=== PATIENT | male | born 1970 | race Two or more races ===

== ENCOUNTER 2018-04-04 15:05 | Inpatient (IN) | payer OTHER ==
[2018-04-04 15:40] VITALS: BMI 24.6
--- NOTE | 2018-04-04 17:53 | HP ---
COWS - Scale Resting Pulse: 0= [place] 80 or Below Sweatin= Beads of Sweat on Face Restless Observation: 1= Difficult to Sit Still Pupil Size: 1= Pupils >than Normal Bone or Joint Aches: 1= Mild Discomfort Runny Nose/ Eye Tearin= Nasal Congestion GI Upset > 30mins: 2= Nausea/Diarrhea Tremor Observation: 2= Slight Tremor Visible Yawning Observation: 0= None Anxiety or Irritability: 1=Feels Anxious/Irritable Goose Flesh Skin: 0=Smooth Skin COWS Score: 12 CIWA Score - Admission Criteria OASAS Guidelines: Admission for Medically Managed Detox: Requires at least one of the followin. CIWA greater than 12 2. Seizures within the past 24 hours 3. Delirium tremens within the past 24 hours 4. Hallucinations within the past 24 hours 5. Acute intervention needed for co occurring medical disorder 6. Acute intervention needed for co occurring psychiatric disorder 7. Severe withdrawal that cannot be handled at a lower level of care (continued vomiting, continued diarrhea, abnormal vital signs) requiring intravenous medication and/or fluids 8. Admission ROS [facility] Chief Complaint: here for heroin detox 48 yo with HIV on meds, VL< 20 and CD4 1200- PCP at [facility]. Says was told he had COPD- uses Ventolin prn Heroin use for 5 years- using 5-6 bags/day, sniffing, last detox 6 weeks ago at [facility]- used the same day of discharge Does not use cocaine, occ THC, no other drugs [employer]/DUR- no recent meds, Utox: fentanyl, opiates, methadone used Suboxone in the past- did not like it. Does not want to go to methadone program- but would consider it Allergies/Adverse Reactions: Allergies Allergy/AdvReac Type Severity Reaction Status Date / Time No Known Allergies Allergy Verified 04/04/18 16:37 - Ebola screening Have you traveled outside of the country in the last 21 days: No Have you had contact with anyone from an Ebola affected area: No Have you been sick,other than usual withdrawal symptoms: No Do you have a fever: No - Review of Systems Constitutional: No Symptoms Reported EENT: reports: No Symptoms Reported Respiratory: reports: No Symptoms reported Cardiac: reports: No Symptoms Reported GI: reports: No Symptoms Reported, Abdominal cramping : reports: No Symptoms Reported Musculoskeletal: reports: No Symptoms Reported Integumentary: reports: No Symptoms Reported Neuro: reports: No Symptoms reported Endocrine: reports: No Symptoms Reported Hematology: reports: No Symptoms Reported Psychiatric: reports: No Sypmtoms Reported Other Systems: Reviewed and Negative Patient History - Patient Medical History Hx Asthma: No Hx Chronic Obstructive Pulmonary Disease (COPD): Yes Hx Cardiac Disorders: No Hx Hypertension: No Hx Seizures: No Hx Diabetes: No Hx Gastrointestinal Disorders: No Hx Genitourinary Disorders: No Hx Sexually Transmitted Disorders: No Hx Renal Disease (ESRD): No Hx Human Immunodeficiency Virus (HIV): Yes (on meds, VL < 20) Hx Depression: No Hx Suicide Attempt: No Hx Schizophrenia: No Other Medical History: h/o Tourette's- uses Risperdal 3mg- controls - Patient Surgical History Past Surgical History: Yes Hx Appendectomy: Yes Hx Genitourinary Surgery: Yes (hernia repair R side) Other Surgical History: R inguinal hernia repair. - PPD History Previous Implant?: Yes Documented Results: Negative w/o proof Implanted On Prior R Admission?: No - Smoking Cessation Smoking history: Current every day smoker Have you smoked in the past 12 months: Yes Aproximately how many cigarettes per day: 20 Hx Chewing Tobacco Use: No Initiated information on smoking cessation: Yes 'Breaking Loose' booklet given: 04/04/18 - Substance & Tx. History Hx Substance Use: Yes Substance Use Type: Heroin Hx Substance Use Treatment: Yes (at [facility] 6 weeks ago) - Substances Abused Heroin Route: Inhalation Frequency: Daily Amount used: 4-5 BAGS Age of first use: 42 Date of Last Use: 04/04/18 Family Disease History - Family Disease History Family History: Denies Admission Physical Exam [facility] - Vital Signs Vital Signs: Vital Signs - 24 hr 04/04/18 15:36 Temperature 96.8 F L Pulse Rate 69 Respiratory 18 Rate Blood Pressure 126/86 - Physical General Appearance: Yes: Within Normal Limits HEENTM: Yes: Within Normal Limits, EOMI, Hearing grossly Normal, Normal ENT Inspection Respiratory: Yes: Within Normal Limits, Wheezing Neck: Yes: Within Normal Limits Cardiology: Yes: Within Normal Limits, S1, S2 Abdominal: Yes: Within Normal Limits Genitourinary: Yes: Within Normal Limits Back: Yes: Within Normal Limits Musculoskeletal: Yes: Within Normal Limits Extremities: Yes: Within Normal Limits Neurological: Yes: Within Normal Limits, heel trimmer II-XII NML intact, Motor Strength 5 /5 Integumentary: Yes: Within Normal Limits Lymphatic: Yes: Within Normal Limits - Diagnostic (1) Opioid use disorder Current Visit: Yes Status: Acute (2) COPD (chronic obstructive pulmonary disease) Current Visit: Yes Status: Acute (3) HIV (human immunodeficiency virus infection) Current Visit: Yes Status: Acute (4) Nicotine use disorder Current Visit: Yes Status: Acute [facility] Breath Alcohol Content Breath Alcohol Content: 0 Urine Drug Screen - Results Drug Screen Negative: No Urine Drug Screen Results: OPI-Opiates, MTD-Methadone, FEN-Fentanyl
[2018-04-04] MEDS ORDERED: METHADONE HCL 10 MG TABLET (FOR DETOX USE ONLY) PO ONE ×2 (18:00→23:00)
[2018-04-04] MEDS ORDERED: diazePAM 5 MG TABLET PO PRN (18:00)
[2018-04-04] MEDS ORDERED: hydrOXYzine PAMOATE 50 MG CAPSULE (FP) PO PRN (18:01)
[2018-04-04] MEDS ORDERED: IBUPROFEN 400 MG TABLET (FP) PO PRN (18:01)
[2018-04-04] MEDS ORDERED: MAGNESIUM CITRATE 300 ML BOTTLE PO PRN (18:01)
[2018-04-04] MEDS ORDERED: ACETAMINOPHEN 325 MG TABLET (FP) PO PRN (18:01)
[2018-04-04] MEDS ORDERED: MENTHOL/PHENOL 1 EACH UD MM PRN (18:01)
[2018-04-04] MEDS ORDERED: P-EPHED 60MG/TRIPROLIDI 2.5MG TABLET PO PRN (18:01)
[2018-04-04] MEDS ORDERED: MAG HYDROX/AL HYDROX/SIMETH 30 ML UNIT-DOSE CUP PO PRN (18:01)
[2018-04-04] MEDS ORDERED: MAGNESIUM HYDROX 2400MG/30ML ORAL SUSPENSION 30 ML CUP PO PRN (18:01)
[2018-04-04] MEDS ORDERED: LOPERAMIDE HCL 2 MG CAPSULE PO PRN (18:01)
[2018-04-04] MEDS ORDERED: guaiFENesin/D-METHORPHAN HB 10 ML UNIT-DOSE CUPS PO PRN (18:01)
[2018-04-04] MEDS ORDERED: ALBUTEROL SO4 8 GM HFA INHALER IH PRN (18:02)
[2018-04-04] MEDS: RISPERIDONE 3 MG PO SCH (22:00)
[2018-04-04] MEDS ORDERED: MELATONIN 5 MG TABLETS PO PRN (22:00)
[2018-04-04] MEDS: THIAMINE HCL 100 MG TABLET (FP) PO SCH (22:49)
[2018-04-05] MEDS ORDERED: METHADONE HCL 10 MG TABLET (FOR DETOX USE ONLY) PO ONE (10:00)
[2018-04-05] MEDS: PRENATAL VITAMINS W/ FOLIC ACID TABLET (FP) PO SCH (10:23)
[2018-04-05] MEDS: NICOTINE 21 MG/24 HOURS TOPICAL PATCH TD SCH (10:23)
[2018-04-05] MEDS: PATIENT'S OWN MEDICATION (NON-FORMULARY) (Bictegrav/Emtricit/Tenofov Ala 1 EACH) PO SCH (10:24)
[2018-04-05] MEDS: RISPERIDONE 3 MG PO SCH ×2 (10:24→22:16)
--- NOTE | 2018-04-05 15:02 | PN ---
[facility] CIWA - CIWA Score Nausea/Vomitin Muscle Tremors: 3 Anxiety: 3 Agitation: 2 Paroxysmal Sweats: 3 Orientation: 0-Oriented Tacttile Disturbances: 1-Very Mild Itch/Numbness Auditory Disturbances: 0-None Visual Disturbances: 0-None Headache: 0-None Present CIWA-Ar Total Score: 14 [facility] COWS - Scale Resting Pulse: 1= ID [id number] Sweatin= Chills/Flushing Restless Observation: 1= Difficult to Sit Still Pupil Size: 0= Normal to Room Light [facility] Progress Note (SOAP) Subjective: Nausea, Tremors, Sweating. Objective: PATIENT A & O X 3, OBSERVED AMBULATING ON UNIT. IN NO ACUTE DISTRESS. 04/05/18 15:03 Vital Signs Temperature 96.4 F L 04/05/18 13:18 Pulse Rate 78 04/05/18 13:18 Respiratory Rate 19 04/05/18 13:18 Blood Pressure 107/78 04/05/18 13:18 O2 Sat by Pulse Oximetry (%) PATIENT REFUSED TO HAVE ADMISSION LABS DRAWN. 04/05/18 15:04 Assessment: 04/05/18 15:04 WITHDRAWAL SYMPTOMS. Plan: CONTINUE DETOX.
[2018-04-05] MEDS: THIAMINE HCL 100 MG TABLET (FP) PO SCH (22:16)
--- NOTE | 2018-04-06 09:34 | DS ---
[facility] Detox Discharge Summary Admission Date: 04/04/18 Discharge Date: 04/06/18 - History Present History: Opioid Dependence Additional Comments: 48 years old male admitted on 04/04/18 for opiate withdrawal stabilization insists to leave the detox unit that "no one knows I am here" encourage the patient to contact friends and family member through phone calls patient preferred to leave the detox unit and "do it outside" recommend the patient to attend community self support group and meeting Pertinent Past History: strong recommend the patient to follow up with infectious disease specialist and adherence with the ART - Physical Exam Results Vital Signs: Vital Signs Temperature 97 F L 04/06/18 06:04 Pulse Rate 54 L 04/06/18 06:04 Respiratory Rate 18 04/06/18 06:04 Blood Pressure 141/89 04/06/18 06:04 O2 Sat by Pulse Oximetry (%) Pertinent Admission Physical Exam Findings: opiate withdrawal sx - Treatment Hospital Course: Detox Protocol Followed, Responded well Patient has Accepted a Rehab Referral to: as per counselor arranged - Medication Discharge Medications: Ambulatory Orders Bictegrav/Emtricit/Tenofov Ala [Biktarvy 50-200-25 mg Tablet] 1 each PO DAILY Risperidone [Risperdal] 3 mg PO BID 04/04/18 - Diagnosis (1) COPD (chronic obstructive pulmonary disease) Current Visit: Yes Status: Chronic Qualifiers: COPD type: emphysema (2) Opioid dependence with withdrawal Current Visit: Yes Status: Acute (3) HIV (human immunodeficiency virus infection) Current Visit: Yes Status: Chronic (4) Nicotine use disorder Current Visit: Yes Status: Acute - AMA Did Patient Leave Against Medical Advice: Yes
[2018-04-06] MEDS: PATIENT'S OWN MEDICATION (NON-FORMULARY) (Bictegrav/Emtricit/Tenofov Ala 1 EACH) PO SCH (09:54)
[2018-04-06] MEDS: NICOTINE 21 MG/24 HOURS TOPICAL PATCH TD SCH (09:54)
[2018-04-06] MEDS: PRENATAL VITAMINS W/ FOLIC ACID TABLET (FP) PO SCH (09:54)
[2018-04-06] MEDS: RISPERIDONE 3 MG PO SCH (09:55)
[2018-04-06] MEDS ORDERED: METHADONE HCL 5 MG TABLET (FOR DETOX USE ONLY) PO ONE (10:00)
[2018-04-06 13:56] VITALS: BP 122/74; PULSE 80; TEMP 96.4
[2018-04-07] MEDS ORDERED: METHADONE HCL 5 MG TABLET (FOR DETOX USE ONLY) PO ONE (10:00)
[2018-04-08] MEDS ORDERED: METHADONE HCL 10 MG TABLET (FOR DETOX USE ONLY) PO ONE (10:00)
[2018-04-09] MEDS ORDERED: METHADONE HCL 5 MG TABLET (FOR DETOX USE ONLY) PO ONE (06:00)
== END 2018-04-06 09:56 | disposition left against medical advice (07) | DRG 770 ==
LOC: YASAS 15:05 → Y3N 18:05
PROC: HZ2ZZZZ Detoxification Services for Substance Abuse Treatment (ICD-10-PCS; principal; 2018-04-04)
DX: F11.23 Opioid dependence with withdrawal (principal); F17.210 Nicotine dependence, cigarettes, uncomplicated; Z21 Asymptomatic human immunodeficiency virus [HIV] infection status; J44.9 Chronic obstructive pulmonary disease, unspecified; F95.2 Tourette's disorder

== ENCOUNTER 2019-04-07 12:01 | Inpatient (IN) | payer OTHER ==
[2019-04-07 12:28] VITALS: BMI 26.9
--- NOTE | 2019-04-07 13:32 | HP ---
COWS - Scale Resting Pulse: 0= [place] 80 or Below Sweatin= Chills/Flushing Restless Observation: 1= Difficult to Sit Still Pupil Size: 1= Pupils >than Normal Bone or Joint Aches: 2= Severe Diffuse Aches Runny Nose/ Eye Tearin= Runny Nose/Eyes GI Upset > 30mins: 2= Nausea/Diarrhea Tremor Observation: 2= Slight Tremor Visible Yawning Observation: 1= 1-2x During Session Anxiety or Irritability: 2=Irritable/Anxious Goose Flesh Skin: 0=Smooth Skin COWS Score: 14 CIWA Score - Admission Criteria OASAS Guidelines: Admission for Medically Managed Detox: Requires at least one of the followin. CIWA greater than 12 2. Seizures within the past 24 hours 3. Delirium tremens within the past 24 hours 4. Hallucinations within the past 24 hours 5. Acute intervention needed for co occurring medical disorder 6. Acute intervention needed for co occurring psychiatric disorder 7. Severe withdrawal that cannot be handled at a lower level of care (continued vomiting, continued diarrhea, abnormal vital signs) requiring intravenous medication and/or fluids 8. Admitting History and Physical - Admission Chief Complaint: i need help to sto using heroin History of Present Illness: this 49 years old male with heroin dependence ,seeking help to stop,withdrawal symptom,last detox 04/04/18 to 04/06/18 nicotine dependence hiv positive since 2000 History Source: Patient Limitations to Obtaining History: No Limitations - Past Medical History Infectious Disease: Yes: HIV (since 2000) Additional Past Medical History: tourette syndrome - Smoking History Smoking history: Current every day smoker Have you smoked in the past 12 months: Yes Aproximately how many cigarettes per day: 20 - Alcohol/Substance Use Hx Alcohol Use: No History of Substance Use: reports: Heroin - Social History Usual Living Arrangement: Yes: With Parent (mother) ADL: Support Services Occupation: unemployed Admission ROS S - HPI Chief Complaint: i need to stop using heroin Allergies/Adverse Reactions: Allergies Allergy/AdvReac Type Severity Reaction Status Date / Time No Known Allergies Allergy Verified 04/07/19 12:20 History of Present Illness: this 49 years old male with heroin dependence seeking detox no seizure no syncope hiv since 2000 nicotine dependence longest soreithy 2 years asthma - Ebola screening Have you traveled outside of the country in the last 21 days: No Have you had contact with anyone from an Ebola affected area: No - Review of Systems Constitutional: Chills, Loss of Appetite, Malaise, Night Sweats, Changes in sleep, Weakness, Unintentional Wgt. Loss EENT: reports: Tearing, Nose Congestion Respiratory: reports: Other (asthma) Cardiac: reports: No Symptoms Reported GI: reports: Diarrhea, Abdominal cramping : reports: No Symptoms Reported Musculoskeletal: reports: Back Pain, Muscle Pain Integumentary: reports: Dryness Neuro: reports: Headache, Tremors Endocrine: reports: No Symptoms Reported Hematology: reports: No Symptoms Reported, Other (hiv) Psychiatric: reports: No Sypmtoms Reported, Judgement Intact, Mood/Affect Appropiate, Orientated x3 Other Systems: Reviewed and Negative Patient History - Patient Medical History Hx Asthma: No Hx Chronic Obstructive Pulmonary Disease (COPD): Yes (on inhaler) Hx Cancer: No Hx Cardiac Disorders: No Hx Congestive Heart Failure: No Hx Hypertension: No Hx Hypercholesterolemia: No Hx Pacemaker: No HX Cerebrovascular Accident: No Hx Seizures: No Hx Dementia: No Hx Diabetes: No Hx Gastrointestinal Disorders: No Hx Liver Disease: No Hx Genitourinary Disorders: No Hx Sexually Transmitted Disorders: No Hx Renal Disease (ESRD): No Hx Human Immunodeficiency Virus (HIV): Yes (on meds, VL < 20 since 2000) Hx Hepatitis C: No Hx Depression: No Hx Suicide Attempt: No Hx Bipolar Disorder: No Hx Schizophrenia: No Other Medical History: no suicidal.no homicidal - Patient Surgical History Past Surgical History: Yes Hx Appendectomy: Yes (at age 24) Hx Genitourinary Surgery: Yes (hernia repair R side) Other Surgical History: R inguinal hernia repair. at age 22 - PPD History Previous Implant?: Yes Documented Results: Negative w/o proof Implanted On Prior [facility] Admission?: Yes Date: 04/06/18 PPD to be Administered?: Yes - Smoking Cessation Smoking history: Current every day smoker Have you smoked in the past 12 months: Yes Aproximately how many cigarettes per day: 20 Hx Chewing Tobacco Use: No Initiated information on smoking cessation: Yes 'Breaking Loose' booklet given: 04/07/19 - Substance & Tx. History Hx Alcohol Use: No Hx Substance Use: Yes Substance Use Type: Heroin Hx Substance Use Treatment: Yes - Substances abused Heroin Substance route: Inhalation Frequency: Daily Amount used: 7 BAGS Age of first use: 45 Date of last use: 04/06/19 Admission Physical Exam [facility] - Vital Signs Vital Signs: Vital Signs - 24 hr 04/07/19 12:19 Temperature 97.4 F L Pulse Rate 77 Respiratory 17 Rate Blood Pressure 138/91 - Physical General Appearance: Yes: Moderate Distress, Tremorous, Irritable, Sweating, Anxious HEENTM: Yes: Normal ENT Inspection, CALLIE, Pharynx Normal Respiratory: Yes: Lungs Clear, Normal Breath Sounds, No Respiratory Distress Neck: Yes: Within Normal Limits, Supple, Trachea in good position Breast: Yes: Within Normal Limits Cardiology: Yes: Within Normal Limits, Regular Rhythm, Regular Rate, S1, S2 Abdominal: Yes: Within Normal Limits, Normal Bowel Sounds, Non Tender, Soft Genitourinary: Yes: Within Normal Limits Back: Yes: Muscle Spasm Musculoskeletal: Yes: Back pain, Joint Stiffness, Muscle Pain Extremities: Yes: Within Normal Limits, Normal Range of Motion, Tremors Neurological: Yes: autobody technician II-XII NML intact, Fully Oriented, Alert, Motor Strength 5/5 Integumentary: Yes: Dry Lymphatic: Yes: Within Normal Limits - Diagnostic (1) Opioid dependence with withdrawal Current Visit: No Status: Acute (2) Tourette syndrome Current Visit: No Status: Acute (3) COPD (chronic obstructive pulmonary disease) Current Visit: No Status: Chronic Qualifiers: COPD type: emphysema (4) HIV (human immunodeficiency virus infection) Current Visit: No Status: Chronic (5) Nicotine dependence Current Visit: Yes Status: Acute Cleared for Admission [facility] - Detox or Rehab [facility] Level of Care: Medically Managed Detox Regimen/Protocol: Methadone Breathalyzer - Breathalyzer Breathalyzer: 0 Urine Drug Screen - Test Device Lot number: [id number] Expiration date: 01/02/21 - Control Is test valid?: Yes - Results Drug screen NEGATIVE: No Urine drug screen results: MOP-Opiates Inpatient Rehab Admission - Rehab Decision to Admit Inpatient rehab admission?: No
[2019-04-07] MEDS ORDERED: ACETAMINOPHEN 325 MG TABLET (FP) PO PRN ×2 (13:45)
[2019-04-07] MEDS ORDERED: MAGNESIUM HYDROX 2400MG/30ML ORAL SUSPENSION 30 ML CUP PO PRN (13:45)
[2019-04-07] MEDS ORDERED: cloNIDine HCL 0.1 MG TABLET PO PRN (13:45)
[2019-04-07] MEDS ORDERED: MAG HYDROX/AL HYDROX/SIMETH 30 ML UNIT-DOSE CUP PO PRN (13:45)
[2019-04-07] MEDS ORDERED: IBUPROFEN 400 MG TABLET (FP) PO PRN (13:45)
[2019-04-07] MEDS ORDERED: BISMUTH SUBSALICYLATE 262 MG/15 ML BTL PO PRN (13:45)
[2019-04-07] MEDS ORDERED: MAGNESIUM CITRATE 300 ML BOTTLE PO PRN (13:45)
[2019-04-07] MEDS ORDERED: MENTHOL/PHENOL 1 EACH UD MM PRN (13:45)
[2019-04-07] MEDS ORDERED: hydrOXYzine PAMOATE 25 MG CAPSULE (FP) PO PRN (13:45)
[2019-04-07] MEDS ORDERED: NICOTINE POLACRILEX 2 MG GUM BUC PRN (13:45)
[2019-04-07] MEDS ORDERED: METHOCARBAMOL 500 MG TABLET PO PRN (13:45)
[2019-04-07] MEDS ORDERED: MELATONIN 5 MG TABLETS PO PRN (13:45)
[2019-04-07] MEDS ORDERED: ALBUTEROL SO4 8 GM HFA INHALER IH PRN (13:48)
[2019-04-07] MEDS ORDERED: METHADONE HCL 10 MG TABLET (FOR DETOX USE ONLY) PO ONE (14:36)
[2019-04-07 17:35] LABS: HEMATOCRIT 45.7 % (35.4-49); HEMOGLOBIN 15.2 GM/dL (11.7-16.9); MCHC 33.3 g/dl (32.0-35.9); MEAN CELL VOLUME 93.3 fl (80-96); MEAN PLT VOLUME 7.9 fl (7.5-11.1); PLATELET COUNT 301 K/MM3 (134-434); RDW 15.9 % (11.9-15.9)
[2019-04-07 17:44] LABS: ALBUMIN 4.2 g/dl (3.4-5.0); BILIRUBIN,TOTAL 0.5 mg/dL (0.2-1); BLOOD UREA NITROGEN 15.5 mg/dL (7-18); CALCIUM 9.5 mg/dL (8.5-10.1); POTASSIUM 4.7 mmol/L (3.5-5.1); TOT PROT 7.8 g/dl (6.4-8.2)
[2019-04-07] MEDS: THIAMINE HCL 100 MG TABLET (FP) PO SCH (21:36)
[2019-04-08] MEDS ORDERED: METHADONE HCL 5 MG TABLET (FOR DETOX USE ONLY) PO ONE (10:00)
[2019-04-08] MEDS: PRENATAL VITAMINS W/ FOLIC ACID TABLET (FP) PO SCH (10:46)
[2019-04-08] MEDS: PATIENT'S OWN MEDICATION (NON-FORMULARY) (Abacavir/Dolutegravir/Lamivudi [Triumeq 600-50-3 PO SCH (10:47)
[2019-04-08] MEDS ORDERED: hydrOXYzine PAMOATE 25 MG CAPSULE (FP) PO PRN (14:01)
--- NOTE | 2019-04-08 14:03 | PN ---
[facility] COWS - Scale Resting Pulse: 2= [place] 101-120 Sweatin= Chills/Flushing Restless Observation: 3= Extraneous Movement Pupil Size: 1= Pupils >than Normal Bone or Joint Aches: 1= Mild Discomfort Runny Nose/ Eye Tearin= Nasal Congestion GI Upset > 30mins: 1= Stomach Cramp Tremor Observation of Outstretched Hands: 1= Tremor [place], Not Seen Yawning Observation: 1= 1-2x During Session Anxiety or Irritability: 1=Feels Anxious/Irritable Goose Flesh Skin: 0=Smooth Skin COWS Score: 13 [facility] Progress Note (SOAP) Subjective: pt feels like he is still in withdrawal, was admitted yesterday for heroin detox. O: Vital Signs - 24 hr 04/07/19 04/07/19 04/07/19 14:51 17:25 21:34 Temperature 98.2 F 98.1 F 98.4 F Pulse Rate 68 70 65 Respiratory 16 18 16 Rate Blood Pressure 118/75 138/86 135/77 04/08/19 04/08/19 04/08/19 01:18 03:45 10:01 Temperature 98.4 F Pulse Rate 72 Respiratory 18 16 18 Rate Blood Pressure 177/114 H a/p: OUD- detox protocol, pt to go home on Wednesday. BP high this morning- pt states does not have h/o HTN, says saw PCP on and was not given dx- will monitor and treat if needed
[2019-04-09] MEDS: THIAMINE HCL 100 MG TABLET (FP) PO SCH (00:20)
[2019-04-09] MEDS ORDERED: METHADONE HCL 10 MG TABLET (FOR DETOX USE ONLY) PO ONE (10:00)
[2019-04-09] MEDS: PRENATAL VITAMINS W/ FOLIC ACID TABLET (FP) PO SCH (10:30)
[2019-04-09] MEDS: PATIENT'S OWN MEDICATION (NON-FORMULARY) (Abacavir/Dolutegravir/Lamivudi [Triumeq 600-50-3 PO SCH (10:30)
[2019-04-09 14:08] VITALS: BP 138/96; PULSE 74; TEMP 98.6
--- NOTE | 2019-04-09 16:36 | DS ---
[facility] Detox Discharge Summary Admission Date: 04/07/19 Discharge Date: 04/09/19 - History Present History: Opioid Dependence Additional Comments: Pt demanded to leave AMA despite encouragement from staff to complete detox. Pt instructed to call 911 [facility] if sick or withdrawal sxs and to see his PCP within 3 days. Pt left in stable condition. Pertinent Past History: Asthma HIV - Physical Exam Results Vital Signs: Vital Signs Temperature 98.6 F 04/09/19 14:07 Pulse Rate 74 04/09/19 14:07 Respiratory Rate 17 04/09/19 14:07 Blood Pressure 138/96 04/09/19 14:07 O2 Sat by Pulse Oximetry (%) Pertinent Admission Physical Exam Findings: Withdrawal sxs Laboratory Tests 04/07/19 04/07/19 04/07/19 13:30 13:30 13:30 WBC 9.0 RBC 4.90 Hgb 15.2 Hct 45.7 MCV 93.3 MCH 31.0 MCHC 33.3 RDW 15.9 Plt Count 301 MPV 7.9 Sodium 138 Potassium 4.7 Chloride 103 Carbon Dioxide 32 Anion Gap 3 L BUN 15.5 Creatinine 1.0 Est GFR (CKD-EPI)AfAm 101.26 Est GFR (CKD-EPI)NonAf 87.37 Random Glucose 97 Calcium 9.5 Total Bilirubin 0.5 AST 20 ALT 25 Alkaline Phosphatase 66 Total Protein 7.8 Albumin 4.2 RPR Titer Nonreactive Labs reviewed - Medication Discharge Medications: Ambulatory Orders Abacavir/Dolutegravir/Lamivudi [Triumeq Tablet] 1 each PO DAILY 04/07/19 - Diagnosis (1) Asthma Status: Chronic (2) Nicotine dependence Status: Chronic (3) Opioid dependence with withdrawal Status: Acute (4) HIV (human immunodeficiency virus infection) Status: Chronic - AMA Did Patient Leave Against Medical Advice: Yes (Instructed to call 911 [facility]AL if sick/withdrawal sxs)
[2019-04-10] MEDS ORDERED: METHADONE HCL 5 MG TABLET (FOR DETOX USE ONLY) PO ONE (06:00)
== END 2019-04-09 13:10 | disposition left against medical advice (07) | DRG 770 ==
LOC: YASAS 12:01 → Y6N 14:01
PROVIDERS: ADMIT Allergy & Immunology; ATTEND Allergy & Immunology
PROC: HZ2ZZZZ Detoxification Services for Substance Abuse Treatment (ICD-10-PCS; principal; 2019-04-07)
DX: F11.23 Opioid dependence with withdrawal (principal); F17.210 Nicotine dependence, cigarettes, uncomplicated; Z21 Asymptomatic human immunodeficiency virus [HIV] infection status; J44.9 Chronic obstructive pulmonary disease, unspecified; F95.2 Tourette's disorder
CPT/HCPCS: 36415; 80053; 85027; 86593; J0735